=== PATIENT | female | born 1945 | race African-American/Black ===

== ENCOUNTER 2024-07-25 07:02 | Emergency (ER) | payer MEDICARE ==
[~2024-07-25] VITALS: Ht 154.9 cm; Wt 81.0 kg
[2024-07-25] MEDS ORDERED: VALS160T2 PO (07:19)
[2024-07-25] MEDS ORDERED: AMLO-257 PO (07:19)
[2024-07-25 07:50] LABS: INFLUENZA TYPE A NEGATIVE FOR TYPE A (NEGATIVE); INFLUENZA TYPE B NEGATIVE FOR TYPE B (NEGATIVE)
[2024-07-25 09:08] LABS: COVID AG,FIA SOURCE NASAL SWAB
[2024-07-25 09:39] LABS: SARS-COV2 (COVID) ANTIGEN,FIA Negative (Negative)
[2024-07-25 10:05] LABS: APPEARANCE,URINE CLEAR (CLEAR); BILIRUBIN,URINE NEGATIVE (NEGATIVE); COLOR,URINE COLORLESS (YELLOW); GLUCOSE, URINE (UA) NEGATIVE (NEGATIVE); KETONES,URINE NEGATIVE (NEGATIVE); LEUKOCYTE ESTERASE ,URINE NEGATIVE (NEGATIVE); NITRATE,URINE NEGATIVE (NEGATIVE); OCCULT BLOOD,URINE NEGATIVE (NEGATIVE); PROTEIN,URINE NEGATIVE (NEGATIVE); SPECIFIC GRAVITIY, URINE 1.009 (1.003-1.030); UROBILINOGEN,URINE <=1.0 mg/dL (<=1.0)
[2024-07-25 10:08] LABS: BACTERIA,URINE None Seen /HPF (None Seen); RBC,URINE None Seen /HPF (0-2); WBC,URINE None Seen /HPF (0-5)
[2024-07-25] MEDS: OXYMETAZOLINE HCL 0.05% 15 ML NASAL SPRAY NASAL ONE (10:56)
[2024-07-25 10:57] VITALS: BP 169/94; PULSE 90; RESP 16; O2SAT 98
== END 2024-07-25 10:58 | disposition home or self-care (01) ==
LOC: EMS 07:02
DX: J06.9 Acute upper respiratory infection, unspecified (principal); I10 Essential (primary) hypertension; Z79.899 Other long term (current) drug therapy; Z88.1 Allergy status to other antibiotic agents; Z20.822 Contact with and (suspected) exposure to COVID-19
CPT/HCPCS: 71045; 81001; 87804; 99284